=== PATIENT | female | born 1995 | race Caucasian/White ===

== ENCOUNTER → 2017-09-06 | Outpatient (CLI) | payer BC ==
--- NOTE | 2017-09-06 15:19 | DIAGNOSTIC IMAGING REPORT ---
PELVIS WITHOUT CONTRAST (MRI) CLINICAL HISTORY: LT FOOT NUMBNESS,PAIN pain. Neuropathy. TECHNIQUE: Multi axial MRI acquisition COMPARISON STUDY: None FINDINGS: Signal characteristics of the major osseous structures of the bony pelvis are unremarkable. Uterus is anteflexed. Junctional zone is intact. Bladder is midline. There is no evidence for mass or collection. Signal characteristics of all major muscle structures are unremarkable. IMPRESSION: Normal study The above report was generated using voice recognition software. It may contain grammatical, syntax or spelling errors. Electronically signed by: Regan Beck M.D. 09/06/2017 3:17 PM Dictated Date/Time: 09/06/2017 3:07 PM
== END | disposition home or self-care (01) ==
LOC: C.MRI 14:22
PROVIDERS: ATTEND Nurse Practitioner Family
DX: M79.605 Pain in left leg (principal); R20.2 Paresthesia of skin